=== PATIENT | male | born 1995 ===

== ENCOUNTER 2024-03-20 06:15 | Day surgery (SDC) | payer OTHER, SELFPAY ==
[2024-03-20 07:39] VITALS: BMI 26.1
[2024-03-20 07:51] VITALS: BP 126/89
[2024-03-20] MEDS: NORMOSOL-R 1000 IV (07:58)
[2024-03-20] MEDS: TYLENOL 1000 MG PO (07:59)
[2024-03-20 08:05] VITALS: BMI 26.1
[2024-03-20 13:38] VITALS: BP 111/69
[2024-03-20 13:45] VITALS: BP 119/66
[2024-03-20 14:00] VITALS: BP 115/72
[2024-03-20 14:15] VITALS: BP 126/63
== END 2024-03-20 14:50 | disposition home or self-care (01) ==
LOC: SDS 06:15
PROVIDERS: ATTENDING PHYSICIAN Surgery
DX: K60.1 Chronic anal fissure (principal); K64.4 Residual hemorrhoidal skin tags
CPT/HCPCS: 46505; 88304; J0585